=== PATIENT | male | born 1945 | race Caucasian/White ===

== ENCOUNTER 2020-01-31 09:30 | Outpatient (RCR) | payer SELFPAY | END 2020-04-12 11:09 | disposition home or self-care (01) | LOC: CHSCPRIII 09:30 | PROVIDERS: PCP Family Medicine; Visit Provider Family Medicine | DX: I25.10 Atherosclerotic heart disease of native coronary artery without angina pectoris (principal) | CPT/HCPCS: 99199 ==

== ENCOUNTER 2022-11-17 10:00 | Outpatient (RCR) | payer MEDICARE, BC, SELFPAY ==
--- NOTE | 2022-09-18 10:59 | PTOPEVAL1 ---
Assessment and note entered by JT File, PT Evaluation Information Assessment Status Evaluation Diagnosis parkinsons disease Onset 09/01/22 Subjective Information patient reports he is being reffered to therapy due to his parkinsons disease. he reports he is having difficulty walking, and his voice is changing. he reports his tells him he need speach therapy (evaluation is happening today). he reports he has difficulty walking through grass, and he reports he is told he shuffles a lot. he reports he owns a cane and walker. he reports he does not use his cane or walker much. he reports since his medication changes for his heart he has been walking better. he reports he has been diagnosed for about 1-2 years with parkinsons. he reports he has been on a medication for parkinsons for about 2 years. he reports he does have tremors, and his legs jump and shake like crazy. he reports he would like to be able to walk from his house to his garage through the grass, play golf, and ride a bicycle. Reported Pain Level Pain Score 0: Self Report Assessment PT Clinical Summary mr. donaldson is a 77 yo man who presents to skilled PT services for evaluation and treatment of strength, balance, and safety deficits secondary to parkinsons disease. he presents today with poor posture/tight musculature, bilateral LE weakness, unsteady gait, and a high fall risk per the tinetti. he would benefit from continued skilled PT services to address his objective/ functional deficits and improve his balance, safety, gait mechanics, and functional mobility to improve his quality of life/slow the progression of parkinsons disease. Plan of Care Interventions Gait Training,Neuro Re-education,Patient/Caregiver Educati,Therapeutic Activities,Therapeutic Exercise PT Services Indicated Yes Treatment Frequency and 3x weekly for 12 visits Duration These treatments will address the objective and functional deficits as defined above. The patient will be advanced safely and appropriately in order for the patient to progress towards his/her prior level of function. Additional exercises will be introduced and as well as a comprehensive home exercise program upon discharge, if needed, ?to ensure carryover of functional gains achieved in the clinic. This treatment plan has been reviewed and agreement upon by the patient.
--- NOTE | 2022-09-18 11:00 | OPREHPOC ---
Outpatient Therapy Plan of Care This is a Multidisciplinary Plan of Care that may contain components documented by all disciplines (PT, OT, and ST.) PT Problem 1 PT Problem #1 Knowledge Deficit PT Goal 1 Goal independent and compliant with HEP to improve tolerance for continued skilled PT and exercises. Target Visit 6 PT Problem 2 PT Problem #2 Impaired Balance PT Goal 1 Goal 1. tinetti to display moderate or less fall risk 2. TUG and 5x sit to stand to be completed in less than 15 seconds Target Visit 12 PT Problem 3 PT Problem #3 Impaired Flexibility PT Goal 1 Goal 1. patient to display improved posture noting scapular retraction, reduced hip flexion appearance, and no knee flexion. 2. patient to display 35 degrees or less bilateral hamstrings tightness per the 90/90 test. Target Visit 12 PT Problem 4 PT Problem #4 Impaired Strength PT Goal 1 Goal 1. improve bilateral hip flexion to 4+/5 or better 2. improve bilateral knee strength to 5/5 3. no cogwheel type pattern of resistance to MMT Target Visit 12 PT Problem 5 PT Problem #5 Impaired Functional Mobil PT Goal 1 Goal 1. patient to ambulate at all times with cane for improved gait mechanics and decreased fall risk 2. patient to ambulate in grass for 10 minutes with no loss of balance to improve quality of life 3. patient to report no falls in the last 4 week Target Visit 12
--- NOTE | 2022-09-18 12:48 | STOPEVAL1 ---
Assessment and note entered by Alma Delia Sims, WET MIX OPERATOR Evaluation Information Assessment Status Evaluation Assessment Status Evaluation Diagnosis Mild cognitive impairment (G31.84), Parkinson's disease (G20) Onset 2 years ago diagnosed w/ Parkinson's disease, memory difficulties recently Subjective Information Patient was referred for an ST evaluation due to concerns with memory and speech. Patient reported that recently he has been having more difficulty with his short term memory, finding the words he wants to say, and has a more raspy/hoarse voice that is more difficulty to understand in the evening. Reported Pain Level Pain Score 0: Self Report Pain Score 0: Self Report These treatments will address the objective and functional deficits as defined above. The patient will be advanced safely and appropriately in order for the patient to progress towards his/her prior level of function. Additional exercises will be introduced and as well as a comprehensive home exercise program upon discharge, if needed, ?to ensure carryover of functional gains achieved in the clinic. This treatment plan has been reviewed and agreement upon by the patient.
--- NOTE | 2022-09-18 12:57 | BUSTOPEVAL1 ---
Assessment and note entered by Alma Delia Sims, PORTFOLIO ARCHITECT Evaluation Information Assessment Status Evaluation Diagnosis Mild cognitive impairment (G31.84), Parkinson's disease (G20) Subjective Information Patient was referred for an ST evaluation due to concerns with memory and speech. Patient reported that recently he has been having more difficulty with his short term memory, finding the words he wants to say, and has a more raspy/hoarse voice that is more difficulty to understand in the evening. Reported Pain Level Pain Score 0: Self Report Pain Score 0: Self Report Assessment ST Clinical Summary Patient was referred for an ST evaluation by his primary physician due to increased concerns with his short term memory, word finding skills, and speech intelligibility. Patient reported that he has difficulty remembering things more recently. He will go into a room and forget what he was going to get. He also reported that he has difficulty finding the words he wants to say in conversation and he said his voice has changed recently with more vocal hoarseness. Through clinical observation, history, assessment and overall impression patient presents with a mild cognitive-communication disorder through difficulty with delayed memory skills, word finding at the conversation level, difficulty with moderate/complex mathematical tasks, and a score of 24/30 on SLUMS (mild neurocognitive disorder). Recommendation for speech therapy to target cognitive-communication deificts, and mild cognitive impairment (G31.84) to improve patient's ability to have conversations and perform all daily tasks with the least amount of assistance. Recommendation for ST 1x/week for 10 sessions. Plan of Care Interventions Treatment of Speech,Treatment of Language, Treatment for Cognitive F Treatment Frequency and 1x week for 10 sessions Duration These treatments will address the objective and functional deficits as defined above. The patient will be advanced safely and appropriately in order for the patient to progress towards his/her prior level of function. Additional exercises will be introduced and as well as a comprehensive home exercise program upon discharge, if needed, ?to ensure carryover of functional gains achieved in the clinic. This treatment plan has been reviewed and agreement upon by the patient.
--- NOTE | 2022-09-18 16:52 | OPREHPOC ---
Outpatient Therapy Plan of Care This is a Multidisciplinary Plan of Care that may contain components documented by all disciplines (PT, OT, and ST.) PT Problem 1 PT Problem #1 Knowledge Deficit PT Goal 1 Goal independent and compliant with HEP to improve tolerance for continued skilled PT and exercises. Target Visit 6 PT Problem 2 PT Problem #2 Impaired Balance PT Goal 1 Goal 1. tinetti to display moderate or less fall risk 2. TUG and 5x sit to stand to be completed in less than 15 seconds Target Visit 12 PT Problem 3 PT Problem #3 Impaired Flexibility PT Goal 1 Goal 1. patient to display improved posture noting scapular retraction, reduced hip flexion appearance, and no knee flexion. 2. patient to display 35 degrees or less bilateral hamstrings tightness per the 90/90 test. Target Visit 12 PT Problem 4 PT Problem #4 Impaired Strength PT Goal 1 Goal 1. improve bilateral hip flexion to 4+/5 or better 2. improve bilateral knee strength to 5/5 3. no cogwheel type pattern of resistance to MMT Target Visit 12 PT Problem 5 PT Problem #5 Impaired Functional Mobil PT Goal 1 Goal 1. patient to ambulate at all times with cane for improved gait mechanics and decreased fall risk 2. patient to ambulate in grass for 10 minutes with no loss of balance to improve quality of life 3. patient to report no falls in the last 4 week Target Visit [address] Problem #[address] Goal 1 Goal 1. Patient will participate in home programming. Target Visit [address] Problem #[address] Goal 1 Goal Auditory comprehension: 1. Patient will complete paragraph retention tasks moderate/complex with 90% accuracy. Target Visit 10 ST Goal 2 Goal 2. Patient will perform delayed recall tasks to target short term memory skills with 90% accuracy and minimal cues. Target Visit [address] Problem #[address] Goal 1
--- NOTE | 2022-10-15 14:41 | PTOPPROG ---
Assessment and note entered by JT File, PT Evaluation Information Assessment Status Progress Diagnosis parkinsons disease Onset 09/01/22 Subjective Information patient reports he feels alright today. he reports he is not sure how well therapy has improved his balance or strength. he reports his back does hurt a bit today. Assessment PT Clinical Summary mr. donaldson presents to skilled PT services for his 10th skilled therapy visit. he is making progress in strength, balance, and endurance. however, he still lacks achievement of all goals for skilled PT. he would benefit from continued skilled PT to address his remaining strength, endurance, balance, and ambulation deficits to improve his functional activity performance. Plan of Care Interventions Gait Training,Neuro Re-education,Patient/Caregiver Educati,Therapeutic Activities,Therapeutic Exercise PT Services Indicated Yes Treatment Frequency and continue skilled PT for 2 more visits per initial Duration POC These treatments will address the objective and functional deficits as defined above. The patient will be advanced safely and appropriately in order for the patient to progress towards his/her prior level of function. Additional exercises will be introduced and as well as a comprehensive home exercise program upon discharge, if needed, ?to ensure carryover of functional gains achieved in the clinic. This treatment plan has been reviewed and agreement upon by the patient.
--- NOTE | 2022-10-16 13:42 | OPREHPOC ---
Outpatient Therapy Plan of Care This is a Multidisciplinary Plan of Care that may contain components documented by all disciplines (PT, OT, and ST.) PT Problem 1 PT Problem #1 Knowledge Deficit PT Goal 1 Goal independent and compliant with HEP to improve tolerance for continued skilled PT and exercises. Target Visit 6 Progress Met PT Problem 2 PT Problem #2 Impaired Balance PT Goal 1 Goal 1. tinetti to display moderate or less fall risk 2. TUG and 5x sit to stand to be completed in less than 15 seconds Target Visit 12 Progress Partially Met PT Problem 3 PT Problem #3 Impaired Flexibility PT Goal 1 Goal 1. patient to display improved posture noting scapular retraction, reduced hip flexion appearance, and no knee flexion. 2. patient to display 35 degrees or less bilateral hamstrings tightness per the 90/90 test. Target Visit 12 Progress Met PT Problem 4 PT Problem #4 Impaired Strength PT Goal 1 Goal 1. improve bilateral hip flexion to 4+/5 or better 2. improve bilateral knee strength to 5/5 3. no cogwheel type pattern of resistance to MMT Target Visit 12 Progress Met PT Problem 5 PT Problem #5 Impaired Functional Mobil PT Goal 1 Goal 1. patient to ambulate at all times with cane for improved gait mechanics and decreased fall risk 2. patient to ambulate in grass for 10 minutes with no loss of balance to improve quality of life 3. patient to report no falls in the last 4 week Target Visit 12 Progress Partially Met Comment not compliant with cane use ST Problem 1 ST Problem #[address] Goal 1 Goal 1. Patient will participate in home programming. Target Visit [address] Problem #[address] Goal 1 Goal Auditory comprehension: 1. Patient will complete paragraph retention tasks moderate/complex with 90% accuracy. Target Visit 10
--- NOTE | 2022-10-16 13:42 | PTOPDC ---
Assessment and note entered by Emily Best DPT Evaluation Information Assessment Status Re-evaluation Diagnosis parkinsons disease Onset 09/01/22 Subjective Information Patient report's he has been walking in the grass but has been using his walker at times. Patient does not feel like he has gotten much stronger since start of PT. Reported Pain Level Pain Score 0,8: Self Report Pain Score 0: Self Report Pain Score 0,7: Self Report Pain Score 0,7: Self Report Pain Score 0,7: Self Report Assessment PT Clinical Summary Patient was seen for 12 visits of skilled PT. He partially met set goals during POC with improvement in gait, balance and strength. he is independent with HEP and is appropriate for DC at this time. Plan of Care PT Services Indicated No
--- NOTE | 2022-12-01 10:18 | PCSTNOTE ---
Patient was not seen the week of November 24-November 28 due to FERRYBOAT OPERATOR being out of town. Patient was offered an appointment with another therapist but declined.
--- NOTE | 2022-12-15 11:31 | BUSTOPDC ---
Assessment and note entered by Alma Delia Sims, MOTION PICTURE PHOTOGRAPHER Evaluation Information Assessment Status Discharge Diagnosis Mild cognitive impairment (G31.84), Parkinson's disease (G20) Subjective Information Patient was referred for an ST evaluation due to concerns with memory and speech. Patient has completed a total of 10 speech therapy visits since the initial evaluation on 09-18-22 for the treatment of mild cognitive impairment and cognitive communcation deficit. Reported Pain Level Pain Score 0,0,8: Self Report Pain Score 0: Self Report Pain Score 0: Self Report Pain Score 0: Self Report Pain Score 0: Self Report Pain Score 0: Self Report Pain Score 0: Self Report Pain Score 0,10: Self Report Pain Score 0,8: Self Report Pain Score 0: Self Report Pain Score 0,7: Self Report Pain Score 0,7: Self Report Pain Score 0,7: Self Report Pain Score 0,9: Self Report Pain Score 2,3: Self Report Pain Score 0: Self Report Pain Score 0: Self Report Pain Score 0: Self Report Pain Score 0,5: Self Report Pain Score 0: Self Report Pain Score 0: Self Report Pain Score 8: Self Report Pain Score 0: Self Report Pain Score 0: Self Report Assessment ST Clinical Summary Patient was referred for an ST evaluation by his primary physician due to increased concerns with his short term memory, word finding skills, and speech intelligibility. Patient has completed a total of 10 speech therapy visits to target cognitive-communication skills. Patient reported that he has seen improvement in his memory and overall speech skills. SLUMS was readministered and patient received a score of 29/30 (normal). Patient is very happy with progress that has been made and is ready for discharge at this time. Activities were sent home for the patient to continue to target along with continued practice through [employer] game
== END 2022-12-15 23:59 | disposition home or self-care (01) ==
LOC: CHSST 10:00
DX: G20 Parkinson's disease (principal); G31.84 Mild cognitive impairment of uncertain or unknown etiology; R49.0 Dysphonia
CPT/HCPCS: 92507; 92523; 96125; 97110; 97112; 97150; 97161; 97530